=== PATIENT | female | born 1950 | race Caucasian/White ===

== ENCOUNTER 2018-06-27 07:24 | Emergency (ER) | payer MEDICARE ==
--- NOTE | 2018-06-27 07:32 | ERPHSYRPT ---
- History of Present Illness Time Seen by Provider: 06/27/18 07:31 Historian: patient, family Physician History: 67 y/o white female presents with right flank and right lateral abd pain. pt describes pain as sharp and intermittent spasms. pt has has 3 c sections, cholecystectomy and appendectomy. pt has no known h/o nephrolithiasis. pts last colonoscopy was 2 to 3 years ago. pt has not had any n/v/d. pt had similar issue 2 weekends ago but resolved completely until a recurrence this past weekend. pain has not subsided. Timing/Duration: week(s) (1 to 2) Activities at Onset: none Quality: sharpness, stabbing Abdominal Pain Onset Location: RUQ, flank (right) Pain Radiation: no radiation Severity of Pain-Max: moderate Severity of Pain-Current: mild Modifying Factors: Improves With: nothing Associated Symptoms: No chest pain, No diaphoresis, No diarrhea, No fever/chills , No fatigue, No headache, No heartburn, No loss of appetite, No nausea, No neck pain, No rash, No vomiting, No weakness Previous symptoms: same symptoms as today Allergies/Adverse Reactions: adhesive tape Allergy (Severe, Verified 06/27/18 07:50) swelling, burning, pain fabric or silk tape- ok with plastic aspirin Allergy (Severe, Verified 06/27/18 07:50) Swelling codeine [Codeine] Allergy (Severe, Verified 06/27/18 07:50) Hives hydrocodone bitartrate [From Vicodin] Allergy (Severe, Verified 06/27/18 07:50) Hives levofloxacin [From Levaquin] Allergy (Severe, Verified 06/27/18 07:50) Hives tramadol Allergy (Severe, Verified 06/27/18 07:50) Hives Home Medications: Atorvastatin Calcium [Lipitor] 20 mg PO DAILY 06/27/18 [History] Letrozole 2.5 mg PO DAILY 06/27/18 [History] Lisinopril 10 mg [Zestril 10 MG] 10 mg PO DAILY 06/27/18 [History] Metformin HCl [Metformin HCl ER] 2,000 mg PO DAILY 06/27/18 [History] Hx Tetanus, Diphtheria Vaccination/Date Given: Yes Hx Influenza Vaccination/Date Given: No Hx Pneumococcal Vaccination/Date Given: Yes - Review of Systems Constitutional: No Symptoms Eyes: No Symptoms Ears, Nose, & Throat: No Symptoms Respiratory: No Symptoms Cardiac: No Symptoms Abdominal/Gastrointestinal: Abdominal Pain, No Nausea, No Vomiting, No Diarrhea Genitourinary Symptoms: Flank Pain (right), No Dysuria, No Frequency, No Hematuria Musculoskeletal: No Symptoms, No Neck Pain, No Deformity, No Fall, No Injury Skin: No Symptoms Neurological: No Symptoms Psychological: No Symptoms Endocrine: No Symptoms Hematologic/Lymphatic: No Symptoms All Other Systems: Reviewed and Negative - Past Medical History Pertinent Past Medical History: Yes Neurological History: No Pertinent History ENT History: No Pertinent History Cardiac History: No Pertinent History Respiratory History: No Pertinent History Endocrine Medical History: No Pertinent History Musculoskeletal History: No Pertinent History GI Medical History: GERD, Other History: No Pertinent History Psycho-Social History: No Pertinent History Female Reproductive Disorders: Breast Cancer, Other Other Medical History: HIATAL HERNIA, - Past Surgical History Past Surgical History: Yes Neuro Surgical History: No Pertinent History Cardiac: No Pertinent History Respiratory: No Pertinent History Gastrointestinal: No Pertinent History Genitourinary: No Pertinent History Musculoskeletal: No Pertinent History Female Surgical History: Hysterectomy, Lumpectomy Other Surgical History: c sections x 3, Lumpectomy of Rt breast for breast CA - Social History Smoking Status: Never smoker Exposure to second hand smoke: No Drug Use: none Patient Lives Alone: Yes - Nursing Vital Signs Nursing Vital Signs: Initial Vital Signs Temperature 97.8 F 06/27/18 07:28 Pulse Rate 57 L 06/27/18 07:28 O2 Sat by Pulse Oximetry 99 06/27/18 07:28 Pain Scale Pain Intensity 8 - Physical Exam General Appearance: mild distress, alert, anxiety Eye Exam: PERRL/EOMI, eyes nml inspection Ears, Nose, Throat Exam: normal ENT inspection, moist mucous membranes Neck Exam: normal inspection, non-tender, supple, full range of motion Respiratory Exam: normal breath sounds, lungs clear, airway intact, No chest tenderness, No respiratory distress, No accessory muscle use, No rhonchi, No wheezing, No stridor Cardiovascular Exam: regular rate/rhythm, normal heart sounds, normal peripheral pulses Gastrointestinal/Abdomen Exam: soft, normal bowel sounds, tenderness (right upper lateral), No guarding, No rebound Pelvic Exam: not done Rectal Exam: not done Back Exam: normal inspection, normal range of motion, CVA tenderness (right), No vertebral tenderness Extremity Exam: normal inspection, normal range of motion, pelvis stable Neurologic Exam: alert, oriented x 3, cooperative, director of placement II-XII nml as tested Skin Exam: normal color, warm, dry SpO2 Interpretation: normal - Course Nursing assessment & vital signs reviewed: Yes Ordered Tests: Active Orders 24 hr Category Date Time Status Clean Catch Urine Specimen STAT Care 06/27/18 07:50 Active IV Insertion STAT Care 06/27/18 07:50 Active ABDOMEN AND PELVIS W CONTRAST [CT] Stat Exams 06/27/18 07:51 Completed AMYLASE Stat Lab 06/27/18 08:00 Completed CBC W DIFF Stat Lab 06/27/18 08:00 Completed CMP Stat Lab 06/27/18 08:00 Completed CULTURE,URINE Stat Lab 06/27/18 08:00 Received LIPASE Stat Lab 06/27/18 08:00 Completed Lactic Acid Stat Lab 06/27/18 07:52 Completed UA W/RFX UR CULTURE Stat Lab 06/27/18 08:00 Completed Medication Summary Generic Name Dose Route Start Last Admin Trade Name Freq PRN Reason Stop Dose Admin Sodium Chloride 1,000 mls @ 100 mls/hr 06/27/18 08:00 06/27/18 08:00 Sodium Chloride 0.9% 1000 Ml IV 07/27/18 07:59 100 mls/hr .Q10H SERJIO Administration Lab/Rad Data: Laboratory Result Diagrams 06/27/18 08:00 06/27/18 08:00 Laboratory Results 06/27/18 06/27/18 06/27/18 Range/Units 08:00 08:00 08:00 WBC 11.8 H (4.0-10.5) K/mm3 RBC 4.66 (4.1-5.4) M/mm3 Hgb 13.4 (12.0-16.0) gm/dl Hct 40.5 (35-47) % MCV 86.9 (78-100) fl MCH 28.8 (26-32) pg MCHC 33.1 (32-36) g/dl RDW 13.5 (11.5-14.0) % Plt Count 236 (150-450) K/mm3 MPV 12.2 H (6-9.5) fl Gran % 85.7 H (36.0-66.0) % Eos # (Auto) 0.10 (0-0.5) Absolute Lymphs (auto) 1.01 (1.0-4.6) Absolute Monos (auto) 0.55 (0.0-1.3) Lymphocytes % 8.6 L (24.0-44.0) % Monocytes % 4.7 (0.0-12.0) % Eosinophils % 0.8 (0.00-5.0) % Basophils % 0.2 (0.0-0.4) % Absolute Granulocytes 10.09 H (1.4-6.9) Basophils # 0.02 (0-0.4) Sodium 140 (137-145) mmol/L Potassium 5.0 (3.5-5.1) mmol/L Chloride 106 (98-107) mmol/L Carbon Dioxide 21 L (22-30) mmol/L Anion Gap 17.4 H (5-15) MEQ/L BUN 22 H (7-17) mg/dL Creatinine 1.10 H (0.52-1.04) mg/dL Estimated GFR 52.8 ML/MIN Glucose 153 H (74-106) mg/dL Lactic Acid (0.4-2.0) Calcium 9.6 (8.4-10.2) mg/dL Total Bilirubin 0.60 (0.2-1.3) mg/dL AST 26 (14-36) U/L ALT 21 (0-35) U/L Alkaline Phosphatase 107 (38-126) U/L Serum Total Protein 8.6 H (6.3-8.2) g/dL Albumin 5.0 (3.5-5.0) g/dL Amylase 109 (30-110) U/L Lipase 51 (23-300) U/L Urine Color YELLOW (YELLOW) Urine Appearance SLIGHTLY CLOUDY (CLEAR) Urine pH 5.0 (5-6) Ur Specific [place] 1.018 (1.005-1.025) Urine Protein NEGATIVE (Negative) Urine Ketones NEGATIVE (NEGATIVE) Urine Blood LARGE (0-5) [place]/ul Urine Nitrite NEGATIVE (NEGATIVE) Urine Bilirubin NEGATIVE (NEGATIVE) Urine Urobilinogen 2 (0-1) mg/dL Ur Leukocyte Esterase TRACE (NEGATIVE) Urine WBC (Auto) 3-5 (0-5) /HPF Urine RBC (Auto) 26-50 (0-2) /HPF U Epithel Cells (Auto) RARE (FEW) /HPF Urine Bacteria (Auto) RARE (NEGATIVE) /HPF Urine Mucus (Auto) SLIGHT (NEGATIVE) /HPF Urine Culture Reflexed YES (NO) Urine Glucose NEGATIVE (NEGATIVE) mg/dL 06/27/18 Range/Units 07:52 WBC (4.0-10.5) K/mm3 RBC (4.1-5.4) M/mm3 Hgb (12.0-16.0) gm/dl Hct (35-47) % MCV (78-100) fl MCH (26-32) pg MCHC (32-36) g/dl RDW (11.5-14.0) % Plt Count (150-450) K/mm3 MPV (6-9.5) fl Gran % (36.0-66.0) % Eos # (Auto) (0-0.5) Absolute Lymphs (auto) (1.0-4.6) Absolute Monos (auto) (0.0-1.3) Lymphocytes % (24.0-44.0) % Monocytes % (0.0-12.0) % Eosinophils % (0.00-5.0) % Basophils % (0.0-0.4) % Absolute Granulocytes (1.4-6.9) Basophils # (0-0.4) Sodium (137-145) mmol/L Potassium (3.5-5.1) mmol/L Chloride (98-107) mmol/L Carbon Dioxide (22-30) mmol/L Anion Gap (5-15) MEQ/L BUN (7-17) mg/dL Creatinine (0.52-1.04) mg/dL Estimated GFR ML/MIN Glucose (74-106) mg/dL Lactic Acid 1.3 (0.4-2.0) Calcium (8.4-10.2) mg/dL Total Bilirubin (0.2-1.3) mg/dL AST (14-36) U/L ALT (0-35) U/L Alkaline Phosphatase (38-126) U/L Serum Total Protein (6.3-8.2) g/dL Albumin (3.5-5.0) g/dL Amylase (30-110) U/L Lipase (23-300) U/L Urine Color (YELLOW) Urine Appearance (CLEAR) Urine pH (5-6) Ur Specific [place] (1.005-1.025) Urine Protein (Negative) Urine Ketones (NEGATIVE) Urine Blood (0-5) [place]/ul Urine Nitrite (NEGATIVE) Urine Bilirubin (NEGATIVE) Urine Urobilinogen (0-1) mg/dL Ur Leukocyte Esterase (NEGATIVE) Urine WBC (Auto) (0-5) /HPF Urine RBC (Auto) (0-2) /HPF U Epithel Cells (Auto) (FEW) /HPF Urine Bacteria (Auto) (NEGATIVE) /HPF Urine Mucus (Auto) (NEGATIVE) /HPF Urine Culture Reflexed (NO) Urine Glucose (NEGATIVE) mg/dL ct scan abd/pelvis-6mm mid right ureteral stone with mild prox ureteral dilation and mild right hydronephrosis - Progress Progress: improved, re-examined Progress Note: 06/27/18 10:30 pt states her pain is completely gone. 06/27/18 10:31 pt states she can take percocet for pain Counseled pt/family regarding: lab results, diagnosis, need for follow-up, rad results - Departure Time of Disposition: 10:31 Departure Disposition: Home Clinical Impression: Ureteral stone with hydronephrosis Condition: Stable Critical Care Time: No Referrals: HAM SHARMA [Primary Care Provider] - Additional Instructions: drink plenty of fluids. stop your metformin for 48 hours. use tylenol and ibuprofen for pain. if stronger pain medication is needed, fill the percocet prescription Prescriptions: Oxycodone HCl/Acetaminophen [Percocet 5-325 mg Tablet] 1 each PO Q12H PRN PRN # 6 tablet MDD 2 PRN Reason: Pain
[2018-06-27] MEDS ORDERED: Sodium Chloride 0.9% 1000 ML 1,000 ML ONE (07:57)
[2018-06-27] MEDS ORDERED: Sodium Chloride 0.9% 1000 ML 1,000 ML IV SCH (08:00)
[2018-06-27 08:02] LABS: BASOPHIL % 0.2 % (0.0-0.4); Basophil (Absolute #) 0.02 (0-0.4); Eosinophil % 0.8 % (0.00-5.0); Granulocyte Absolute (ANC) 10.09 (1.4-6.9); Granulocytes % 85.7 % (36.0-66.0); Hematocrit 40.5 % (35-47); Hemoglobin 13.4 gm/dl (12.0-16.0); Lymphocyte (Absolute #) 1.01 (1.0-4.6); Lymphocytes % 8.6 % (24.0-44.0); Mean Cell Volume 86.9 fl (78-100); Mean Corpuscular Hemoglobin 28.8 pg (26-32); Mean Corpuscular Hgb Concent. 33.1 g/dl (32-36); Mean Platelet Volume 12.2 fl (6-9.5); Monocyte (Absolute #) 0.55 (0.0-1.3); Monocytes % 4.7 % (0.0-12.0); Platelet Count 236 K/mm3 (150-450); Red Blood Count 4.66 M/mm3 (4.1-5.4); Red Cell Distribution Width 13.5 % (11.5-14.0); White Blood Count 11.8 K/mm3 (4.0-10.5)
[2018-06-27 08:06] LABS: Appearance SLIGHTLY CLOUDY (CLEAR); Bilirubin NEGATIVE (NEGATIVE); Blood LARGE Ery/ul (0-5); Glucose NEGATIVE (NEGATIVE); Ketones NEGATIVE (NEGATIVE); Leukocyte Esterase TRACE (NEGATIVE); Nitrite NEGATIVE (NEGATIVE); Protein,Urine Dip NEGATIVE (Negative); Specific Gravity 1.018 (1.005-1.025); Urobilinogen 2 mg/dL (0-1)
[2018-06-27 08:13] LABS: ANION GAP 17.4 MEQ/L (5-15); BILIRUBIN,TOTAL 0.6 mg/dL (0.2-1.3); Calcium 9.6 mg/dL (8.4-10.2); Creatinine 1 1.1 mg/dL (0.52-1.04); Total Protein 8.6 g/dL (6.3-8.2)
--- NOTE | 2018-06-27 09:58 | XRAY ---
Exam: CT of the abdomen and pelvis with IV contrast from 06/27/2018. CTDI: 13.25 Comparison: CT of the abdomen without and with IV contrast from 10/16/2012 and gallbladder ultrasound from 10/14/2012. Indication: 67-year-old female with right-sided abdominal pain. The patient gives a history of prior hysterectomy, cholecystectomy, appendectomy, and section 3. Technique: Post-IV contrast axial images were obtained through the abdomen and pelvis during automated injection of 80 cc of Isovue-370 contrast material. Reconstructed coronal and sagittal images were created and reviewed. Also, delayed axial images were obtained through the abdomen and pelvis. Findings: The posterior lung bases reveal some minimal posterior dependent atelectatic changes. There are also a couple thin curvilinear strands of scarring or subsegmental atelectasis at the left lung base. There is a small hiatal hernia present. The liver and spleen appear unremarkable. No hepatic mass or intrahepatic biliary duct distention is seen. Surgical clips consistent with prior cholecystectomy are noted. The pancreas is remarkable only for a tiny 5 mm cystic lesion within the pancreatic tail on axial image #19 of series #2. This may represent a tiny cyst. The adrenal glands appear unremarkable. The kidneys are of normal size and reveal no definite calcifications or renal mass. However, there are some bilateral peripelvic cysts. I also note mild right-sided hydronephrosis and proximal right hydroureter down to the level of an obstructing 6 mm stone within the mid right ureter near the level of the superior iliac crest of the bony pelvis. See axial image #47, coronal image #69, and sagittal image #62. The remainder of the ureters appears unremarkable. There is some delay of excretion into the right upper collecting system on the delayed images. The left upper collecting system functions well. Several tiny bilateral renal cortical cysts are seen. Mild atherosclerotic vascular calcification is seen within the abdominal aorta. No abdominal aortic aneurysm or abnormal retroperitoneal lymphadenopathy is seen. There are a couple calcifications seen just anterior medial to the right psoas muscle within the upper pelvis on axial images #55 through #58 which likely represent calcified phleboliths. I see no free intraperitoneal air. No ventral abdominal wall hernia seen. Some scattered stool is seen throughout the colon. No bowel obstruction or definite bowel wall thickening is seen. There are 2 or 3 diverticula within the right hemicolon. There also appears to be some mild sigmoid colon diverticulosis without evidence of acute diverticulitis. The appendix is surgically absent. No inflammatory changes are seen. The uterus is surgically absent. I detect neither ovary. No enlarged pelvic lymph nodes are seen. The urinary bladder is partially distended and appears grossly unremarkable. There is no free intraperitoneal fluid. Some scattered calcified phleboliths are seen within the lower pelvis. There are couple tiny surgical clips projected just posterior to the symphysis pubis within the inferior pelvis. Correlate with prior surgery. There is a small asymmetric fat-containing right inguinal hernia. See coronal image #49 and axial images #73 through #75 of series #2. No abnormal lymphadenopathy is seen within either groin. The skeleton reveals no acute fracture or aggressive bone lesion. Impression: 1. There is an obstructing mid right ureteral calculus which measures a maximum of about 6 mm in diameter on sagittal image #62 which is causing proximal right ureteral dilation and mild right hydronephrosis. There is asymmetric delay in excretion of contrast into the right upper collecting system and ureter. This is the most likely etiology of the patient's right-sided pain. 2. Small hiatal hernia, tiny bilateral renal cortical cysts and larger bilateral peripelvic renal cysts, and mild uncomplicated diverticulosis within the ascending colon and sigmoid colon. No findings to suggest acute diverticulitis are seen. 3. A small fat-containing right inguinal hernia is seen. See axial image #74. 4. Status post cholecystectomy, appendectomy, and hysterectomy. No other acute process is seen within the abdomen or pelvis.
[2018-06-27 10:41] VITALS: BP 132/59; PULSE 54; O2SAT 95
== END 2018-06-27 10:53 | disposition home or self-care (01) ==
LOC: ED 07:24
DX: N13.2 Hydronephrosis with renal and ureteral calculous obstruction (principal); Z79.1 Long term (current) use of non-steroidal anti-inflammatories (NSAID)
CPT/HCPCS: 36000; 36415; 74177; 80053; 81001; 82150; 83605; 83690; 85025; 87086; 96360; 99284